=== PATIENT | male | born 1965 | race Caucasian/White ===

== ENCOUNTER 2018-01-25 17:10 | Emergency (ER) | payer MEDICARE, MEDICAID ==
[~2018-01-25] VITALS: Ht 182.9 cm; Wt 90.7 kg
[2018-01-25 18:08] VITALS: BP 118/74
[2018-01-25] MEDS ORDERED: DIPHENHYDRAMINE25 M1 ORAL (18:38)
[2018-01-25] MEDS ORDERED: GABAPENTIN100 MG ORAL (18:38)
[2018-01-25 19:26] VITALS: BP 118/74
[2018-01-25] MEDS ORDERED: ACETAMINOPHEN-1 EAC1 ORAL (19:45)
--- NOTE | 2018-01-26 00:25 | Emergency Room Report ---
History of Present Illness General Chief Complaint: Pain Source: Patient Present Illness Allergies: Coded Allergies: MILK (Unverified Allergy, Unknown, 01/25/18) Nursing Documentation-PMH Past Medical History: No Stated History Hx Diabetes: Yes Physical Exam Vital Signs Date Time Temp Pulse Resp B/P (MAP) Pulse Ox O2 Delivery O2 Flow Rate FiO2 01/25/18 17:07 98.1 134 18 118/74 95 Room Air 98.1 Medical Decision Making Diagnostic Impression: Primary Impression: Neuropathy Last Vital Signs Date Time Temp Pulse Resp B/P (MAP) Pulse Ox O2 Delivery O2 Flow Rate FiO2 01/25/18 19:26 98.1 70 18 118/74 95 Room Air 98.1 Disposition: HOME, SELF-CARE Condition: Stable Scripts Acetaminophen With Codeine (T#3) (TYLENOL #3 TAB*) Y Tab 1 TAB ORAL Q8H PRN for For Pain, #20 TAB Prov: Dominic Lou MD 01/25/18 Diphenhydramine Hcl* (DIPHENHYDRAMINE HCL*) 25 Mg Capsule 25 MG ORAL QHS PRN for insomnia, #30 CAP 0 Refills Prov: Dominic Lou MD 01/25/18 Gabapentin* (GABAPENTIN*) 100 Mg Capsule 100 MG ORAL THREE TIMES A DAY for 10 Days, CAP Prov: Dominic Lou MD 01/25/18 Referrals: NON PHYSICIAN (PCP) Patient Instructions: Neuropathic Pain Dominic Lou MD Jan 26, 2018 00:25
== END 2018-01-25 19:26 | disposition home or self-care (01) ==
LOC: EDBD 17:10 → EMR 18:00
DX: G62.9 Polyneuropathy, unspecified (principal); E11.9 Type 2 diabetes mellitus without complications
CPT/HCPCS: 82962; 99283

== ENCOUNTER 2020-03-28 12:28 | Inpatient (IN) | payer MEDICARE, MEDICAID ==
[~2020-03-28] VITALS: Ht 188 cm; Wt 127.0 kg
[~2020-03-28 12:28] MED LIST: ACETAMINOPHEN-1 EAC1 ORAL; DIPHENHYDRAMINE25 M1 ORAL; GABAPENTIN100 MG ORAL
[2020-03-28 12:43] VITALS: BP 128/74
[2020-03-28] MEDS ORDERED: Vancomycin 1 GM in NS 275 ML IVPB ONE (13:00)
[2020-03-28] MEDS ORDERED: Cefepime HCl 1 GM in D5W 55 ML IVPB ONE (13:00)
[2020-03-28] MEDS ORDERED: SODIUM CHLORIDE IVLG ONE (13:15)
--- NOTE | 2020-03-28 13:21 | Emergency Room Report ---
History of Present Illness General Chief Complaint: Abnormal Labs Source: Patient Present Illness HPI 55-year-old male with past medical history of dou-pewgqcp-nchxfkqzi diabetes, hypertension, obesity, polysubstance abuse presents by ambulance with a chief complaint of right plantar foot pain and generalized weakness. EMS found blood sugar to be critically elevated in the 400s. Patient also endorsed some p alpitation but denies any chest pain at this time. He states that he is currently living at a treatment center in [facility]. He denies recent methamphetamine use, fever, chills, cough, hemoptysis, nausea, vomiting, diarrhea, shortness of breath, rash or any other symptoms. Tdap is unknown. The patient's symptoms were gradual onset, severity was moderate, duration since several weeks. Quality: Aching/burning Past medical history: Diabetes, hypertension, obesity, polysubstance abuse Past surgical history: Denies Smoking: Tobacco Alcohol use: Denies Drug use: Denies Review of systems: CONST: No fevers positive chills, No night sweats PULMONARY: No productive cough, No shortness of breath CARDIAC: No chest pain, No palpitations GI: No vomiting, No diarrhea , No melena_or_BRBPR : No dysuria, No hematuria, No discharge NEURO: No new_focal_weakness_or_numbness, No confusion, No vision changes 14 point Review of Systems is otherwise negative except per HPI Physical Exam: GENERAL: Awake_alert_ nontoxic, no acute distress Spo2 100 % on RA -normal EYES: Extraocular muscles are intact. Conjunctivae clear. Lids without swelling ENT: External nose and ear normal_in_appearance. Oropharynx clear. Head_atraumatic, Moist_oral_mucosa NECK: No JVD. No meningismus. No thyromegaly. Supple. Trachea midline RESP: Normal respiratory effort. Symmetric rise. No stridor. Clear_to_auscultat ion_No_rales_No_wheezes CARDIAC: Tachycardic and regular rhytm. No_significant pedal edema. ABDOMEN: Soft. Nondistended. Nontender_No_rebound_or_guarding. MSK: Normal muscle tone, without rigidity. Extremities without asymmetric deformity or swelling. SKIN: Large quarter sized diabetic foot ulceration with active purulent drainage. Surrounding cellulitis. No palpable crepitus no edema. Negative Homans' sign. NEUROLOGIC: Alert, oriented x3. Motor_and_sensation_grossly_intact. No truncal ataxia. Gait_normal Psych: Normal mood and affect, normal judgment and insight - COORDINATION OF CARE Case was discussed with: Patient , Patient's Physician Any labs and imaging that were ordered were interpreted as part of the medical decision making: Medical Decision Making/Plan: Differential diagnosis includes musculoskeletal pain, fracture, dislocation, soft tissue infection such as cellulitis or abscess, necrotizing fasciitis, compartment syndrome, septic arthritis, arterial occlusion, deep venous thrombosis, among others. Patient is disheveled and dehydrated appearing. His right plantar foot has large open purulent diabetic foot ulceration with surrounding cellulitis. There is nothing to suggest necrotizing fasciitis at this time. Accu-Chek was critically elevated therefore patient was bolused with IV fluids. X-ray is negative for subcutaneous gas. High suspicion for osteomyelitis. Labs show elevated lactate of 3. Also ++ Hyperglycemia without evidence of DKA or HHS. No significant leukocytosis or bandemia. EKG is normal sinus rhythm ED intervention included cefepime, tdap, vanco, IVFs. Also received insulin for hyperglycemia. Distally the patient has capillary refill <2 seconds and strong pulses. There is no pallor or pain out of proportion to exam. There is no significant swelling or venous engorgement. The patient has no significant DVT risk factors or known hypercoagulable disorder. No evidence of arterial occlusion or deep venous thrombosis. The associated joints have full range of motion without any significant pain or restriction in mobility. There is no crepitus or pain out of proportion to exam and the patient is afebrile and nontoxic. I spoke with Dr. Benson, and reviewed the patients presentation, workup, res ults, and treatment. They will admit the patient for further care and evaluation, and assume care of the patient at this time. Allergies: Coded Allergies: MILK (Unverified Allergy, Unknown, 01/25/18) COVID-19 Screening Contact w/high risk pt: No Experienced COVID-19 symptoms?: No COVID-19 Testing performed BED RUBBER: No Nursing Documentation-PMH Hx Diabetes: Yes Physical Exam Vital Signs Date Time Temp Pulse Resp B/P (MAP) Pulse Ox O2 Delivery O2 Flow Rate FiO2 03/28/20 12:26 97.9 100 18 128/74 (92) 98 03/28/20 12:43 Room Air Sp02 EP Interpretation: reviewed, normal Medical Decision Making Diagnostic Impression: Primary Impression: Diabetic foot ulcer Additional Impressions: Uncontrolled diabetes mellitus Obesity Noncompliance Polysubstance abuse Hypertension Neuropathy EKG Diagnostic Results MARCY Sims 12-lead EKG (interpreted by ) Time: 1252 Indication: Rhythm analysis Tracing visualized and Interpreted by me. Rhythm: Normal sinus rhythm Rate: 94 bpm QTc: 420 Morphology: No_significant_ST_elevations_or_depressions, No STEMI Impression: Normal_sinus_rhythm_without_significant_abnormality Rhythm Strip Diag. Results Rhythm Strip Time: 13:20 EP Interpretation: yes Rate: 84 Rhythm: NSR, no PVC's, no ectopy Chest X-Ray Diagnostic Results Chest X-Ray Diagnostic Results : MARCY Sims Chest X-Ray: Views: [ 1 ] view(s) Indication: Chest pain Findings: Mediastinum normal. No infiltrate. Impression: Mild cardiomegaly. The X-ray(s) were independently viewed and interpreted contemporaneously Electronically signed by Estella herrera DO Right foot X-ray: Views: 3 view(s) No fracture. Osteomyelitis Indication: Pain Impression: Osteomyelitis second metatarsal. No soft tissue swelling or crepitus The X-ray(s) were independently viewed and interpreted contemporaneously - Electronically signed by Estella herrera DO Reevaluation Time: 13:21 Last Vital Signs Date Time Temp Pulse Resp B/P (MAP) Pulse Ox O2 Delivery O2 Flow Rate FiO2 03/28/20 12:43 97.8 103 18 128/74 98 Room Air Status: improved Disposition: ADMITTED INPATIENT Admit Decision Time: 13:21 Condition: Stable Estella Houser D.O. Mar 28, 2020 13:21
[2020-03-28 13:33] LABS: BASOPHILS % (AUTO) 1.1 % (0.0-2.0); EOSINOPHILS % (AUTO) 2.2 % (0.0-3.0); HEMATOCRIT 38.7 % (42.0-52.0); HEMOGLOBIN 13.3 G/DL (14.2-18.0); MEAN CORPUSCULAR VOLUME 81 FL (80-99); MONOCYTES % (AUTO) 6.8 % (1.0-10.0); PLATELET COUNT 189 K/UL (150-450); RED BLOOD COUNT 4.78 M/UL (4.70-6.10); RED CELL DISTRIBUTION WIDTH 13.2 % (11.6-14.8); WHITE BLOOD COUNT 12.2 K/UL (4.8-10.8)
[2020-03-28 13:42] LABS: ANION GAP 5 mmol/L (5-15); BLOOD UREA NITROGEN 16 mg/dL (7-18); CALCIUM 8.7 MG/DL (8.5-10.1); CARBON DIOXIDE 26 MMOL/L (21-32); CHLORIDE 100 MMOL/L (98-107); CREATININE 0.9 MG/DL (0.55-1.30); INR 0.9 (0.9-1.1); POTASSIUM 4.5 MMOL/L (3.5-5.1); SODIUM 131 MMOL/L (136-145)
--- NOTE | 2020-03-28 13:42 | Diagnostic Imaging Report ---
Indication: Chest pain Technique: One view of the chest Comparison: none Findings: Lungs and pleural spaces are clear. Heart size is normal. Impression: No acute process
[2020-03-28 13:46] LABS: ALANINE AMINOTRANSFERASE 25 U/L (12-78); ALBUMIN 3.1 G/DL (3.4-5.0); ALBUMIN/GLOBULIN RATIO 0.8 (1.0-2.7); ALKALINE PHOSPHATASE 148 U/L (46-116); ASPARTATE AMINO TRANSFERASE 20 U/L (15-37); BILIRUBIN,TOTAL 0.3 MG/DL (0.2-1.0); CREATINE KINASE 108 U/L (26-308)
[2020-03-28] MEDS ORDERED: METFORMIN HCL500 M1 ORAL (13:46)
[2020-03-28] MEDS ORDERED: Tetanus/Diptheria/Pertussis IM ONE (14:00)
[2020-03-28] MEDS ORDERED: Insulin Human Regular 100units/ml 3ml IV ONE (14:00)
[2020-03-28 14:40] VITALS: BP 132/79
--- NOTE | 2020-03-28 14:43 | Diagnostic Imaging Report ---
Indication: Wound on dorsal portion of fluid Technique: 3 views right foot Comparison: none Findings: Exam is significantly limited by deformities. There is severe hammertoe deformity of the first digit, with nearly 90 degree angulation of the metatarsophalangeal joint. The base of the proximal phalanx appears significantly posteriorly subluxed and may be chronically dislocated. There is unusual gracile and deformed appearance of the second metatarsal, probably due to old trauma and erosive change. There is some chronic appearing erosive change of the second metatarsal head as well. There is severe hammertoe deformity of the second digit. There is less severe hammertoe deformities of the third fourth and fifth digits. No definite acute fracture. No dislocations. No definite osseous erosions. There is some chronic appearing periosteal reaction along the shaft of the fourth metatarsal, but no worrisome acute periosteal reaction demonstrated. Impression: No definite plain radiographic abnormality to suggest acute osteomyelitis. Note, however, limited sensitivity of plain radiographs for such; consider MRI or bone scan if there is high clinical suspicion Deformities as described No acute bony trauma
[2020-03-28 16:30] VITALS: BP 122/71
[2020-03-28 18:32] VITALS: BP 136/86
[2020-03-28 19:42] LABS: APPEARANCE,URINE CLEAR; BILIRUBIN, URINE NEGATIVE (NEGATIVE); COLOR,URINE PALE YELLOW; GLUCOSE, URINE (UA) 4+ (NEGATIVE); KETONES,URINE NEGATIVE (NEGATIVE); LEUKOCYTE ESTERASE ,URINE NEGATIVE (NEGATIVE); NITRITE,URINE NEGATIVE (NEGATIVE); PH,URINE 7 (4.5-8.0); PROTEIN,URINE 1+ (NEGATIVE); UROBILINOGEN,URINE NORMAL MG/DL (0.0-1.0)
--- NOTE | 2020-03-28 20:32 | History and Physical Report ---
DATE OF ADMISSION: 03/28/2020 HISTORY OF PRESENT ILLNESS: This is a 55-year-old male who came with DKA and diabetes, poorly controlled, nonhealing ulcer. He has no fever or chills. He came with 911, where he was found to have foot ulcer and complaining of pain. The patient was given IV antibiotics, vancomycin, cefepime. PAST MEDICAL HISTORY: Significant for hypertension, diabetes, gangrene, and diabetic foot ulcer. MEDICATIONS: Insulin. ALLERGIES: NKA. FAMILY HISTORY: Noncontributory. SOCIAL HISTORY: Lives at home by himself. REVIEW OF SYSTEMS: Generalized weakness, tired. Foot pain. PHYSICAL EXAMINATION: VITAL SIGNS: Blood pressure 130/70, pulse 84, respirations 18, no fever. HEENT: NAD. CHEST: Bilateral decreased breath sounds. CARDIOVASCULAR: Regular rhythm. No gallop. No murmur. ABDOMEN: Soft. Positive bowel sounds. EXTREMITIES: Foot ulcer. GENITOURINARY: Deferred. LABORATORY AND DIAGNOSTIC DATA: White counts are normal. ASSESSMENT AND PLAN: 1. Gangrene. 2. Foot ulcer. 3. Diabetic neuropathy. 4. Diabetes, poorly controlled. PLAN: We will admit on medical floor. Start IV antibiotics. Sliding scale, Accu-Chek, IV fluid. Consider surgery consult. Rock Benson M.D. DR: MARYCRUZ JOB#: [id number] CC:
[2020-03-28 20:45] VITALS: BP 143/93
[2020-03-28] MEDS ORDERED: HYDROcodone/Acetamin 5/325 tab ORAL PRN (21:45)
[2020-03-28] MEDS: Piperacillin/Tazobactam 3.375 GM in NS 110 ML IVPB SCH (22:47)
[2020-03-28] MEDS: Heparin 5000 units/ml inj SUBQ SCH (22:51)
[2020-03-29] VITALS: BP 143/81
[2020-03-29] MEDS: Vancomycin 1.25gm/250ml Premix IVPB SCH ×3 (02:23→21:05)
[2020-03-29 04:00] VITALS: BP 116/53
[2020-03-29] MEDS: Heparin 5000 units/ml inj SUBQ SCH ×3 (05:37→22:02)
[2020-03-29] MEDS: Piperacillin/Tazobactam 3.375 GM in NS 110 ML IVPB SCH ×3 (05:39→22:01)
[2020-03-29] MEDS: NovoLOG Insulin Flexpen SUBQ SCH ×4 (05:39→21:12)
[2020-03-29 08:00] VITALS: BP 113/77
--- NOTE | 2020-03-29 09:53 | General Progress Note ---
Subjective Constitutional: Reports: fever, malaise HEENT: Reports: no symptoms Cardiovascular: Reports: no symptoms Respiratory: Reports: no symptoms Gastrointestinal/Abdominal: Reports: no symptoms Genitourinary: Reports: no symptoms Neurologic/Psychiatric: Reports: no symptoms Endocrine: Reports: excessive sweating Allergies: Coded Allergies: MILK (Unverified Allergy, Unknown, 01/25/18) Subjective in bed doing ok Objective Last 24 Hour Vital Signs Date Time Temp Pulse Resp B/P (MAP) Pulse Ox O2 Delivery O2 Flow Rate FiO2 03/29/20 08:00 97.9 98 21 113/77 (89) 97 03/29/20 04:00 98.7 88 20 116/53 (74) 95 03/29/20 00:00 99.0 84 20 143/81 (101) 95 03/28/20 21:00 Room Air 03/28/20 20:45 98.4 67 20 143/93 (110) 95 03/28/20 20:45 Room Air 03/28/20 20:35 98.2 89 18 126/67 98 Room Air 03/28/20 18:32 97.8 94 17 136/86 96 Room Air 03/28/20 16:30 97.8 94 17 122/71 98 Room Air 03/28/20 14:40 97.8 100 18 132/79 96 Room Air 03/28/20 12:43 97.8 103 18 128/74 98 Room Air 03/28/20 12:26 97.9 100 18 128/74 (92) 98 l Intake and Output 03/28/20 03/29/20 19:00 07:00 Intake Total 4330 ml 800 ml Output Total 0 ml 750 ml Balance 4330 ml 50 ml Intake Oral 800 ml IV Total 4330 ml Output Urine Total 0 ml 750 ml # Voids 2 Laboratory Tests 03/28/20 12:40: White Blood Count 12.2H, Red Blood Count 4.78, Hemoglobin 13.3L, Hematocrit 38.7L, Mean Corpuscular Volume 81, Mean Corpuscular Hemoglobin 27.9, Mean Corpuscular Hemoglobin Concent 34.4, Red Cell Distribution Width 13.2, Platelet Count 189, Mean Platelet Volume 9.3, Neutrophils (%) (Auto) 73.0, Lymphocytes (%) (Auto) 17.0L, Monocytes (%) (Auto) 6.8, Eosinophils (%) (Auto) 2.2, Basophils (%) (Auto) 1.1, Erythrocyte Sedimentation Rate 45H, Prothrombin Time 9.7, Prothromb Time International Ratio 0.9, Activated Partial Thromboplast Time 19L, Sodium Level 131L, Potassium Level 4.5, Chloride Level 100, Carbon Dioxide Level 26, Anion Gap 5, Blood Urea Nitrogen 16, Creatinine 0.9, Estimat Glomerular Filtration Rate > 60, Glucose Level 452H, Lactic Acid Level 3.00H, Calcium Level 8.7, Total Bilirubin 0.3, Aspartate Amino Transf (AST/SGOT) 20, Alanine Aminotransferase (ALT/SGPT) 25, Alkaline Phosphatase 148H, Total Creatine Kinase 108, Troponin I 0.000, C-Reactive Protein, Quantitative 2.5H, Total Protein 7.0, Albumin 3.1L, Globulin 3.9, Albumin/Globulin Ratio 0.8L, Lipase 148, Beta-Hydroxybutyric Acid [Pending] 03/28/20 12:42: Venous Blood pH 7.433, Venous Blood Partial Pressure CO2 41.2, Venous Blood Partial Pressure O2 60.1, Venous Blood HCO3 26.9, Venous Blood Base Excess 2.4, Venous Blood Carboxyhemoglobin 1.9H, Methemoglobin 0.6 03/28/20 15:30: Lactic Acid Level 1.30 03/28/20 19:15: Urine Color Pale yellow, Urine Appearance Clear, Urine pH 7, Urine Specific [place] 1.010, Urine Protein 1+H, Urine Glucose (UA) 4+H, Urine Ketones Negative, Urine Blood Negative, Urine Nitrite Negative, Urine Bilirubin Negative, Urine Urobilinogen Normal, Urine Leukocyte Esterase Negative, Urine RBC 0, Urine WBC 0-2, Urine Squamous Epithelial Cells Few, Urine Amorphous Sediment ModerateH, Urine Bacteria Few, Urine Opiates Screen Negative, Urine Barbiturates Screen Negative, Phencyclidine (PCP) Screen Negative, Urine Amphetamines Screen Negative, Urine Benzodiazepines Screen Negative, Urine Cocaine Screen Negative, Urine Marijuana (THC) Screen Negative 03/28/20 23:00: POC Whole Blood Glucose 291H 03/29/20 04:00: Acetone, Qualitative [Pending] 03/29/20 05:30: Hemoglobin A1c 9.6H 03/29/20 05:35: POC Whole Blood Glucose 298H Height (Feet): 6 Height (Inches): 2.00 Weight (Pounds): 280 General Appearance: no apparent distress EENT: PERRL/EOMI Neck: supple Cardiovascular: regular rhythm Respiratory/Chest: normal breath sounds Abdomen: soft Extremities: other - foot ulcer Clement Benson MD Mar 29, 2020 09:52
--- NOTE | 2020-03-29 09:54 | General Progress Note ---
Subjective Allergies: Coded Allergies: MILK (Unverified Allergy, Unknown, 01/25/18) Subjective in bed doing ok Objective Last 24 Hour Vital Signs Date Time Temp Pulse Resp B/P (MAP) Pulse Ox O2 Delivery O2 Flow Rate FiO2 03/29/20 08:00 97.9 98 21 113/77 (89) 97 03/29/20 04:00 98.7 88 20 116/53 (74) 95 03/29/20 00:00 99.0 84 20 143/81 (101) 95 03/28/20 21:00 Room Air 03/28/20 20:45 98.4 67 20 143/93 (110) 95 03/28/20 20:45 Room Air 03/28/20 20:35 98.2 89 18 126/67 98 Room Air 03/28/20 18:32 97.8 94 17 136/86 96 Room Air 03/28/20 16:30 97.8 94 17 122/71 98 Room Air 03/28/20 14:40 97.8 100 18 132/79 96 Room Air 03/28/20 12:43 97.8 103 18 128/74 98 Room Air 03/28/20 12:26 97.9 100 18 128/74 (92) 98 Intake and Output 03/28/20 03/29/20 19:00 07:00 Intake Total 4330 ml 800 ml Output Total 0 ml 750 ml Balance 4330 ml 50 ml Intake Oral 800 ml IV Total 4330 ml Output Urine Total 0 ml 750 ml # Voids 2 Laboratory Tests 03/28/20 12:40: White Blood Count 12.2H, Red Blood Count 4.78, Hemoglobin 13.3L, Hematocrit 38.7L, Mean Corpuscular Volume 81, Mean Corpuscular Hemoglobin 27.9, Mean Corpuscular Hemoglobin Concent 34.4, Red Cell Distribution Width 13.2, Platelet Count 189, Mean Platelet Volume 9.3, Neutrophils (%) (Auto) 73.0, Lymphocytes (%) (Auto) 17.0L, Monocytes (%) (Auto) 6.8, Eosinophils (%) (Auto) 2.2, Basophils (%) (Auto) 1.1, Erythrocyte Sedimentation Rate 45H, Prothrombin Time 9.7, Prothromb Time International Ratio 0.9, Activated Partial Thromboplast Time 19L, Sodium Level 131L, Potassium Level 4.5, Chloride Level 100, Carbon Dioxide Level 26, Anion Gap 5, Blood Urea Nitrogen 16, Creatinine 0.9, Estimat Glomerular Filtration Rate > 60, Glucose Level 452H, Lactic Acid Level 3.00H, Calcium Level 8.7, Total Bilirubin 0.3, Aspartate Amino Transf (AST/SGOT) 20, Alanine Aminotransferase (ALT/SGPT) 25, Alkaline Phosphatase 148H, Total Creatine Kinase 108, Troponin I 0.000, C-Reactive Protein, Quantitative 2.5H, Total Protein 7.0, Albumin 3.1L, Globulin 3.9, Albumin/Globulin Ratio 0.8L, Lipase 148, Beta-Hydroxybutyric Acid [Pending] 03/28/20 12:42: Venous Blood pH 7.433, Venous Blood Partial Pressure CO2 41.2, Venous Blood Partial Pressure O2 60.1, Venous Blood HCO3 26.9, Venous Blood Base Excess 2.4, Venous Blood Carboxyhemoglobin 1.9H, Methemoglobin 0.6 03/28/20 15:30: Lactic Acid Level 1.30 03/28/20 19:15: Urine Color Pale yellow, Urine Appearance Clear, Urine pH 7, Urine Specific [place] 1.010, Urine Protein 1+H, Urine Glucose (UA) 4+H, Urine Ketones Negative, Urine Blood Negative, Urine Nitrite Negative, Urine Bilirubin Negative, Urine Urobilinogen Normal, Urine Leukocyte Esterase Negative, Urine RBC 0, Urine WBC 0-2, Urine Squamous Epithelial Cells Few, Urine Amorphous Sediment ModerateH, Urine Bacteria Few, Urine Opiates Screen Negative, Urine Barbiturates Screen Negative, Phencyclidine (PCP) Screen Negative, Urine Amphetamines Screen Negative, Urine Benzodiazepines Screen Negative, Urine Cocaine Screen Negative, Urine Marijuana (THC) Screen Negative 03/28/20 23:00: POC Whole Blood Glucose 291H 03/29/20 04:00: Acetone, Qualitative [Pending] 03/29/20 05:30: Hemoglobin A1c 9.6H 03/29/20 05:35: POC Whole Blood Glucose 298H Height (Feet): 6 Height (Inches): 2.00 Weight (Pounds): 280 Assessment/Plan Assessment/Plan: non healing foot ulcer dm uncontrolled dm neuropathy depression iv abx wound care pdietary consult Clement Benson MD Mar 29, 2020 09:54
[2020-03-29 12:00] VITALS: BP 116/73
--- NOTE | 2020-03-29 12:49 | Consultation ---
History of Present Illness General Date patient seen: Mar 29, 2020 Time patient seen: 12:40 Chief Complaint: Chronic ulcer right foot Referring physician: Dr Benson Reason for Consultation: Diabetic foot ulcer Present Illness HPI Patient has increasing pain in right foot. He has had an ulcer on the right foot for the past 3 years. He sought urgent care for his condition. He states he has no where to live. Allergies: Coded Allergies: MILK (Unverified Allergy, Unknown, 01/25/18) Medication History Scheduled Gabapentin* (Gabapentin*), 100 MG ORAL THREE TIMES A DAY Scheduled PRN Acetaminophen With Codeine (T#3) (Tylenol #3 Tab*), 1 TAB ORAL Q8H PRN for For Pain Diphenhydramine Hcl* (Diphenhydramine Hcl*), 25 MG ORAL QHS PRN for insomnia Miscellaneous Medications Metformin Hcl* (Metformin Hcl*), Unknown Dose ORAL, (Reported) Patient History History Provided By: Patient Healthcare decision maker Resuscitation status Advanced Directive on File Past Medical/Surgical History Past Medical/Surgical History: (1) Neuropathy (2) Hypertension (3) Obesity (4) Diabetic foot ulcer (5) Uncontrolled diabetes mellitus (6) Polysubstance abuse (7) Noncompliance (8) Diabetic foot infection Review of Systems Constitutional: Denies: chills, sweats, fever, malaise, weakness Respiratory: Denies: cough, shortness of breath Musculoskeletal: Reports: no symptoms; Denies: gout, joint pain, joint swelling Skin: Reports: change in color, other - ulcer right foot Neurological: Reports: headache; Denies: numbness, paresthesia Physical Exam General Appearance: WD/WN, no apparent distress Cardiovascular/Chest: normal peripheral pulses Extremities: normal range of motion Skin Exam: other - full thickness wound plantar forefoot, does not probe to bone. Minimal serous discharge, no malodor Neurologic: no motor/sensory deficits Last 24 Hour Vital Signs Date Time Temp Pulse Resp B/P (MAP) Pulse Ox O2 Delivery O2 Flow Rate FiO2 03/29/20 08:00 97.9 98 21 113/77 (89) 97 03/29/20 04:00 98.7 88 20 116/53 (74) 95 03/29/20 00:00 99.0 84 20 143/81 (101) 95 03/28/20 21:00 Room Air 03/28/20 20:45 98.4 67 20 143/93 (110) 95 03/28/20 20:45 Room Air 03/28/20 20:35 98.2 89 18 126/67 98 Room Air 03/28/20 18:32 97.8 94 17 136/86 96 Room Air 03/28/20 16:30 97.8 94 17 122/71 98 Room Air 03/28/20 14:40 97.8 100 18 132/79 96 Room Air 03/28/20 12:43 97.8 103 18 128/74 98 Room Air Intake and Output 03/28/20 03/29/20 19:00 07:00 Intake Total 4330 ml 800 ml Output Total 0 ml 750 ml Balance 4330 ml 50 ml Intake Oral 800 ml IV Total 4330 ml Output Urine Total 0 ml 750 ml # Voids 2 Laboratory Tests Test 03/28/20 15:30 03/28/20 19:15 03/28/20 23:00 03/29/20 04:00 Lactic Acid Level 1.30 mmol/L (0.66-2.22) Urine Color Pale yellow Urine Appearance Clear Urine pH 7 (4.5-8.0) Urine Specific [place] 1.010 (1.005-1.035) Urine Protein 1+ (NEGATIVE) H Urine Glucose (UA) 4+ (NEGATIVE) H Urine Ketones Negative (NEGATIVE) Urine Blood Negative (NEGATIVE) Urine Nitrite Negative (NEGATIVE) Urine Bilirubin Negative (NEGATIVE) Urine Urobilinogen Normal MG/DL (0.0-1.0) Urine Leukocyte Esterase Negative (NEGATIVE) Urine RBC 0 /HPF (0 - 0) Urine WBC 0-2 /HPF (0 - 0) Urine Squamous Epithelial Cells Few /LPF (NONE/OCC) Urine Amorphous Sediment Moderate /LPF (NONE) H Urine Bacteria Few /HPF (NONE) Urine Opiates Screen Negative (NEGATIVE) Urine Barbiturates Screen Negative (NEGATIVE) Phencyclidine (PCP) Screen Negative (NEGATIVE) Urine Amphetamines Screen Negative (NEGATIVE) Urine Benzodiazepines Screen Negative (NEGATIVE) Urine Cocaine Screen Negative (NEGATIVE) Urine Marijuana (THC) Screen Negative (NEGATIVE) POC Whole Blood Glucose 291 MG/DL (74-106) H Acetone, Qualitative Pending Test 03/29/20 05:30 03/29/20 05:35 03/29/20 11:38 Hemoglobin A1c 9.6 % (4.3-6.0) H POC Whole Blood Glucose 298 MG/DL (74-106) H 302 MG/DL (74-106) H Microbiology Date/Time Source Procedure Growth Status 03/28/20 16:25 Nasopharynx SARS-CoV-2 RdRp Gene Assay - Final Complete Height (Feet): 6 Height (Inches): 2.00 Weight (Pounds): 280 Medications Current Medications Medications (Trade) Dose Ordered Sig/Yamini Route PRN Reason Start Time Stop Time Status Last Admin Dose Admin Acetaminophen (Tylenol) 650 mg Q4H PRN ORAL Mild Pain (Pain Scale 1-3) 03/28/20 21:45 04/27/20 21:44 Acetaminophen/ Hydrocodone Bitart ([place] 5/325) 1 tab Q6H PRN ORAL Moderate Pain (Pain Scale 4-6) 03/28/20 21:45 04/04/20 21:44 03/28/20 22:50 Dextrose (Dextrose 50%) 25 ml Q30M PRN IV Hypoglycemia 03/28/20 21:45 06/26/20 21:44 Dextrose (Dextrose 50%) 50 ml Q30M PRN IV Hypoglycemia 03/28/20 21:45 06/26/20 21:44 Gabapentin (Neurontin) 600 mg BID ORAL 03/28/20 21:45 04/27/20 21:44 03/29/20 10:34 Heparin Sodium (Porcine) (Heparin 5000 units/ml) 5,000 units EVERY 8 HOURS SUBQ 03/28/20 22:00 05/12/20 21:59 03/29/20 05:37 Insulin Aspart (NovoLOG) BEFORE MEALS AND HS SUBQ 03/29/20 06:30 06/27/20 06:29 03/29/20 11:41 Ondansetron HCl (Zofran) 4 mg Q6H PRN IVP Nausea & Vomiting 03/28/20 21:45 04/27/20 21:44 Piperacillin Sod/ Tazobactam Sod 3.375 gm/Sodium Chloride 110 ml @ 27.5 mls/hr EVERY 8 HOURS IVPB 03/28/20 22:00 04/02/20 21:59 03/29/20 05:39 Sodium Chloride 1,000 ml @ 100 mls/hr Q10H IV 03/28/20 21:45 04/27/20 21:44 03/28/20 22:49 Vancomycin HCl 250 ml @ 166.667 mls/hr Q8H IVPB 03/29/20 02:00 04/03/20 01:59 03/29/20 11:57 Vancomycin HCl (Vanco pharmacy to dose) 1 ea DAILY PRN MISC Per rx protocol 03/28/20 21:45 04/27/20 21:44 Assessment/Plan Assessment/Plan: A/ 1) Right foot diabetic foot ulcer 2) Uncontrolled DM 3) DM neuropathy 4) Homeless P/ 1) Cont abx per ID 2) Wound care ordered 3) MRI ordered 4) D/W patient. Will follow Thank you Nima Jensen DPM Mar 29, 2020 12:49
[2020-03-29 16:00] VITALS: BP 114/70
--- NOTE | 2020-03-29 16:44 | Diagnostic Imaging Report ---
Indication: Right foot ulcer for 3 years Technique: Sagittal, axial, and coronal T1 FSE and FSE STIR images of the right forefoot Comparison: No comparison MRI. Reference made to foot radiograph dated 03/28/2020 Findings: Abnormal increased STIR and decreased T1 signal is seen in the mid to distal first metatarsal. There is mild edema of the surrounding soft tissues. The first metatarsal phalangeal joint is dislocated, with the first proximal phalanx and a 90 degree angle to the first metatarsal neck leaning cephalad, and the articular surface of the proximal phalanx resting on the first metatarsal neck. There is also signal abnormality within the medial sesamoid, likely indicating involvement with osteomyelitis. There is more questionable signal abnormality in the plantar sesamoid. The remainder of the first digit demonstrates normal marrow signal. Markedly increased STIR and decreased T1 signal are seen throughout the mid to distal second metatarsal. There is a suggestion of a chronic fracture deformity of the second metatarsal tarsal shaft. There is evidence of advanced destructive changes of the distal aspect of the second metatarsal, which is more striking what is demonstrated on the prior plain radiograph. Abnormal increased STIR and decreased T1 signal is also seen within the second proximal phalanx. There is considerable edema of the surrounding soft tissues. Abnormal increased STIR and decreased T1 signal is seen throughout the third metatarsal shaft and head. There is also mildly increased STIR signal and equivocal decreased T1 signal in the third proximal phalanx. The middle and distal phalanges appear unremarkable. There is considerable edema of the surrounding soft tissues. No definite signal abnormality involving the fourth or fifth digits is demonstrated. There is a well-circumscribed fluid collection involving the tip of the fourth digit which appears very superficial. This measures 10 x 6 mm. A tissue marker ahmadi an ulcer at the plantar surface below the third proximal interphalangeal joint. Abnormal increased STIR and decreased T1 signal are seen in the lateral cuneiform. More questionable smaller signal abnormality is seen within the middle cuneiform and a very small area of signal abnormality is seen at the posterior superior corner of the medial cuneiform. There is equivocal increased STIR signal without definite T1 signal abnormality in the cuboid Other than the abnormality of the tip of the fourth digit, no discrete organized fluid collection to suggest abscess is demonstrated. Impression: Evidence of osteomyelitis involving the second metatarsal and second proximal phalanx. Evidence of extensive destructive change of the distal second metatarsal; appearance on MRI and earlier plain radiograph suggests that this is a combination of chronic and acute destructive change. Evidence of osteomyelitis involving the first metatarsal, the third metatarsal, and the lateral cuneiform. STIR signal abnormality without definite corresponding T1 signal abnormality involving the third proximal phalanx, the cuboid, and the middle and medial cuneiforms. This could represent reactive changes, or could indicate very early osteomyelitis. Superficial fluid collection at the tip of the fourth digit is a 10 x 6 mm, presumably a blister. This should be evident clinically graft no definite organized fluid collection to suggest abscess. Areas of soft tissue edema probably represent inflammation secondary to infection, but could also represent edema of hemodynamic origin. Soft tissue ulcer at the plantar surface below the third metatarsophalangeal joint Findings discussed by phone with Dr. Phoenix at the time of interpretation
--- NOTE | 2020-03-29 18:15 | Consultation ---
DATE OF CONSULTATION: 03/29/2020 INFECTIOUS DISEASE CONSULTATION This consult is for coverage of Dr. Naranjo. CONSULTING PHYSICIAN: Charbel Collier MD. PRIMARY ATTENDING PHYSICIAN: Clement Benson MD. REASON FOR CONSULTATION: Right foot osteomyelitis. HISTORY OF PRESENT ILLNESS: This is a 55-year-old white male admitted yesterday complaining of generalized weakness and right plantar pain. He has diabetes mellitus, on oral hypoglycemic agent. He was found to have hyperglycemia with blood sugar up to 452 at the time of admission. PAST MEDICAL HISTORY: Diabetes mellitus, hypertension, obesity, diabetic neuropathy. ALLERGIES: Milk. MEDICATIONS: Getting vancomycin, Zosyn, heparin, Zofran, gabapentin, and [place]. SOCIAL HISTORY: , homeless, active smoker. Denies drug and alcohol abuse. REVIEW OF SYSTEMS: No fever. No chills. Right foot pain. States that he has the ulcer in the right foot for more than a year that it comes and goes. PHYSICAL EXAMINATION: VITAL SIGNS: Temperature 98, pulse 77, blood pressure 114/70. GENERAL APPEARANCE: Seems to be obese. HEAD AND NECK: [place] conjunctivae. HEART: Normal rate. LUNGS: Clear. ABDOMEN: Soft, nontender. EXTREMITIES: He has no edema, has right foot plantal ulcer. LABORATORY AND DIAGNOSTIC DATA: COVID-19 test was negative. Blood cultures x2 are negative. WBC 3.2, hemoglobin 13.3, hematocrit 38.7, platelets 189,000. ESR is 45. Sodium 131, potassium 4.5, chloride 100, bicarb 26, BUN 16, creatinine 0.9. Glucose is 452 . Lactic acid was high at the time of admission at 3.0. The patient had an MRI of the right foot that showed osteomyelitis involving the fifth metatarsal and second proximal phalanx, osteomyelitis involving the first metatarsal, third metatarsal and lateral cuneiform. Superficial fluid collection at the tip of forefoot is 10 x 6 mmlikely blister. IMPRESSION: Osteomyelitis of right foot, diabetic foot ulcer, diabetes mellitus with hyperglycemia, hypertension, obesity, nicotine dependence, peripheral neuropathy. RECOMMENDATION: Continue with vancomycin and Zosyn. Follow up the wound culture. The patient needs long-term antibiotic. At the end of my exam, I thank Dr. Benson for involving me in the care of this patient. Charbel Collier M.D. DR: NIYAH JOB#: [id number] CC: SULEMA
[2020-03-29 20:00] VITALS: BP 111/76
[2020-03-30] VITALS: BP 107/65
[2020-03-30 04:00] VITALS: BP 126/77
[2020-03-30] MEDS: Vancomycin 1.25gm/250ml Premix IVPB SCH ×2 (04:05→13:10)
[2020-03-30] MEDS: Piperacillin/Tazobactam 3.375 GM in NS 110 ML IVPB SCH ×2 (06:36→14:00)
[2020-03-30] MEDS: Heparin 5000 units/ml inj SUBQ SCH ×3 (06:38→21:40)
[2020-03-30] MEDS: NovoLOG Insulin Flexpen SUBQ SCH ×4 (06:40→21:41)
[2020-03-30 08:00] VITALS: BP 121/74
[2020-03-30] MEDS ORDERED: NS 275ml ONE (08:17)
[2020-03-30] MEDS ORDERED: 1/2 NS 1000ml IV ONE (08:17)
[2020-03-30 12:00] VITALS: BP 107/61
--- NOTE | 2020-03-30 13:42 | General Progress Note ---
Subjective Allergies: Coded Allergies: MILK (Unverified Allergy, Unknown, 01/25/18) Subjective in bed c/o joseline in foot insomania Objective Last 24 Hour Vital Signs Date Time Temp Pulse Resp B/P (MAP) Pulse Ox O2 Delivery O2 Flow Rate FiO2 03/30/20 12:00 97.7 83 16 107/61 (76) 97 03/30/20 09:00 Room Air 03/30/20 08:00 98.3 89 16 121/74 (90) 97 03/30/20 04:00 97.2 76 22 126/77 (93) 97 03/30/20 00:00 97.6 77 22 107/65 (79) 98 03/29/20 21:00 Room Air 03/29/20 20:00 98.1 83 22 111/76 (88) 96 03/29/20 16:00 97.0 77 22 114/70 (85) 97 Intake and Output 03/29/20 03/30/20 19:00 07:00 Intake Total 1200 ml 950 ml Output Total 3000 ml 1800 ml Balance -1800 ml -850 ml Intake Oral 1200 ml 950 ml Output Urine Total 3000 ml 1800 ml # Voids 10 Laboratory Tests 03/29/20 16:32: POC Whole Blood Glucose 345H 03/29/20 21:04: POC Whole Blood Glucose 291H 03/30/20 06:38: POC Whole Blood Glucose 246H 03/30/20 11:10: Vancomycin Level Trough 11.4 03/30/20 11:41: POC Whole Blood Glucose 307H Height (Feet): 6 Height (Inches): 2.00 Weight (Pounds): 280 General Appearance: alert EENT: PERRL/EOMI Neck: supple Cardiovascular: regular rhythm Respiratory/Chest: lungs clear Abdomen: non tender, soft Extremities: other - rt foot ulcer and gas in wound Neurologic: hide salter II-XII grossly normal Skin: warm/dry Assessment/Plan Assessment/Plan: non healing foot ulcer dm uncontrolled dm neuropathy depression iv abx wound care pdietary consult Clement Benson MD Mar 30, 2020 13:42
--- NOTE | 2020-03-30 13:44 | History and Physical ---
History of Present Illness General Reason for Hospitalization: Abnormal Labs Present Illness Allergies: Coded Allergies: MILK (Unverified Allergy, Unknown, 01/25/18) COVID-19 Screening Contact w/high risk pt: No Experienced COVID-19 symptoms?: No Medication History Scheduled Gabapentin* (Gabapentin*), 100 MG ORAL THREE TIMES A DAY Scheduled PRN Acetaminophen With Codeine (T#3) (Tylenol #3 Tab*), 1 TAB ORAL Q8H PRN for For Pain Diphenhydramine Hcl* (Diphenhydramine Hcl*), 25 MG ORAL QHS PRN for insomnia Miscellaneous Medications Metformin Hcl* (Metformin Hcl*), Unknown Dose ORAL, (Reported) Patient History Healthcare decision maker Resuscitation status Advanced Directive on File Physical Exam Last 24 Hour Vital Signs Date Time Temp Pulse Resp B/P (MAP) Pulse Ox O2 Delivery O2 Flow Rate FiO2 03/30/20 12:00 97.7 83 16 107/61 (76) 97 03/30/20 09:00 Room Air 03/30/20 08:00 98.3 89 16 121/74 (90) 97 03/30/20 04:00 97.2 76 22 126/77 (93) 97 03/30/20 00:00 97.6 77 22 107/65 (79) 98 03/29/20 21:00 Room Air 03/29/20 20:00 98.1 83 22 111/76 (88) 96 03/29/20 16:00 97.0 77 22 114/70 (85) 97 Intake and Output 03/29/20 03/30/20 19:00 07:00 Intake Total 1200 ml 950 ml Output Total 3000 ml 1800 ml Balance -1800 ml -850 ml Intake Oral 1200 ml 950 ml Output Urine Total 3000 ml 1800 ml # Voids 10 Laboratory Tests Test 03/29/20 16:32 03/29/20 21:04 03/30/20 06:38 03/30/20 11:10 POC Whole Blood Glucose 345 MG/DL (74-106) H 291 MG/DL (74-106) H 246 MG/DL (74-106) H Vancomycin Level Trough 11.4 ug/mL (5.0-12.0) Test 03/30/20 11:41 POC Whole Blood Glucose 307 MG/DL (74-106) H Height (Feet): 6 Height (Inches): 2.00 Weight (Pounds): 280 Medications Current Medications Medications (Trade) Dose Ordered Sig/Yamini Route PRN Reason Start Time Stop Time Status Last Admin Dose Admin Acetaminophen (Tylenol) 650 mg Q4H PRN ORAL Mild Pain (Pain Scale 1-3) 03/28/20 21:45 04/27/20 21:44 Acetaminophen/ Hydrocodone Bitart ([place] 5/325) 1 tab Q6H PRN ORAL Moderate Pain (Pain Scale 4-6) 03/28/20 21:45 04/04/20 21:44 03/28/20 22:50 Dextrose (Dextrose 50%) 25 ml Q30M PRN IV Hypoglycemia 03/28/20 21:45 06/26/20 21:44 Dextrose (Dextrose 50%) 50 ml Q30M PRN IV Hypoglycemia 03/28/20 21:45 06/26/20 21:44 Gabapentin (Neurontin) 600 mg BID ORAL 03/28/20 21:45 04/27/20 21:44 03/30/20 08:40 Heparin Sodium (Porcine) (Heparin 5000 units/ml) 5,000 units EVERY 8 HOURS SUBQ 03/28/20 22:00 05/12/20 21:59 03/30/20 06:38 Insulin Aspart (NovoLOG) BEFORE MEALS AND HS SUBQ 03/29/20 06:30 06/27/20 06:29 03/30/20 12:25 Ondansetron HCl (Zofran) 4 mg Q6H PRN IVP Nausea & Vomiting 03/28/20 21:45 04/27/20 21:44 Piperacillin Sod/ Tazobactam Sod 3.375 gm/Sodium Chloride 110 ml @ 27.5 mls/hr EVERY 8 HOURS IVPB 03/28/20 22:00 04/02/20 21:59 03/30/20 06:36 Quetiapine Fumarate (SEROqueL) 15 mg DAILY ORAL 03/31/20 09:00 05/15/20 08:59 UNV Risperidone (RisperDAL) 1 mg QHS ORAL 03/30/20 21:00 05/14/20 20:59 Sodium Chloride 1,000 ml @ 100 mls/hr Q10H IV 03/28/20 21:45 04/27/20 21:44 03/30/20 13:10 Vancomycin HCl 250 ml @ 166.667 mls/hr Q8H IVPB 03/29/20 20:00 03/30/20 16:00 03/30/20 13:10 Vancomycin HCl 300 ml @ 150 mls/hr Q8H IVPB 03/30/20 20:00 04/04/20 19:59 Vancomycin HCl (Vanco pharmacy to dose) 1 ea DAILY PRN MISC Per rx protocol 03/28/20 21:45 04/27/20 21:44 Assessment/Plan Assessment/Plan: non healing foot ulcer dm uncontrolled dm neuropathy depression cronic pain depression add seraquil and risperadol iv abx wound care bone scan r/o osteo pdietary consult Clement Bensno MD Mar 30, 2020 13:44
[2020-03-30 16:00] VITALS: BP 119/74
--- NOTE | 2020-03-30 16:20 | Infectious Diseases Prog Note ---
Assessment/Plan Assessment/Plan IMPRESSION: Osteomyelitis of right foot, Diabetic foot ulcer, Diabetes mellitus with hyperglycemia, Hypertension, Obesity, Nicotine dependence, Peripheral neuropathy. RECOMMENDATION: Refuses line placement Discontinue vancomycin and Zosyn. Start on PO Linezolid & Levaquin Subjective ROS Limited/Unobtainable: No Constitutional: Reports: no symptoms Respiratory: Reports: no symptoms Psychiatric: Reports: other - refuses IV antibiotics Musculoskeletal: Reports: swelling, other - R arm Allergies: Coded Allergies: MILK (Unverified Allergy, Unknown, 01/25/18) Objective Last 24 Hour Vital Signs Date Time Temp Pulse Resp B/P (MAP) Pulse Ox O2 Delivery O2 Flow Rate FiO2 03/30/20 16:00 97.9 73 16 119/74 (89) 97 03/30/20 12:00 97.7 83 16 107/61 (76) 97 03/30/20 09:00 Room Air 03/30/20 08:00 98.3 89 16 121/74 (90) 97 03/30/20 04:00 97.2 76 22 126/77 (93) 97 03/30/20 00:00 97.6 77 22 107/65 (79) 98 03/29/20 21:00 Room Air 03/29/20 20:00 98.1 83 22 111/76 (88) 96 Height (Feet): 6 Height (Inches): 2.00 Weight (Pounds): 280 General Appearance: no acute distress HEENT: mucous membranes moist Cardiovascular: normal rate Abdomen: soft, non tender Extremities: other - R arm edema Skin: ulcers, other Neurologic/Psychiatric: alert, oriented x 3, responsive Microbiology Date/Time Source Procedure Growth Status 03/28/20 16:25 Nasopharynx SARS-CoV-2 RdRp Gene Assay - Final Complete 03/28/20 12:50 Blood Blood Culture - Preliminary NO GROWTH AFTER 24 HOURS Resulted 03/28/20 12:30 Blood Blood Culture - Preliminary NO GROWTH AFTER 24 HOURS Resulted Laboratory Tests Test 03/29/20 16:32 03/29/20 21:04 03/30/20 06:38 03/30/20 11:10 POC Whole Blood Glucose 345 MG/DL (74-106) H 291 MG/DL (74-106) H 246 MG/DL (74-106) H Vancomycin Level Trough 11.4 ug/mL (5.0-12.0) Test 03/30/20 11:41 POC Whole Blood Glucose 307 MG/DL (74-106) H Current Medications Medications (Trade) Dose Ordered Sig/Yamini Route PRN Reason Start Time Stop Time Status Last Admin Dose Admin Acetaminophen (Tylenol) 650 mg Q4H PRN ORAL Mild Pain (Pain Scale 1-3) 03/28/20 21:45 04/27/20 21:44 Acetaminophen/ Hydrocodone Bitart ([place] 5/325) 1 tab Q6H PRN ORAL Moderate Pain (Pain Scale 4-6) 03/28/20 21:45 04/04/20 21:44 03/28/20 22:50 Clindamycin HCl (Cleocin) 300 mg Q8HR ORAL 03/30/20 22:00 04/06/20 21:59 Dextrose (Dextrose 50%) 25 ml Q30M PRN IV Hypoglycemia 03/28/20 21:45 06/26/20 21:44 Dextrose (Dextrose 50%) 50 ml Q30M PRN IV Hypoglycemia 03/28/20 21:45 06/26/20 21:44 Gabapentin (Neurontin) 600 mg BID ORAL 03/28/20 21:45 04/27/20 21:44 03/30/20 08:40 Heparin Sodium (Porcine) (Heparin 5000 units/ml) 5,000 units EVERY 8 HOURS SUBQ 03/28/20 22:00 05/12/20 21:59 03/30/20 15:20 Insulin Aspart (NovoLOG) BEFORE MEALS AND HS SUBQ 03/29/20 06:30 06/27/20 06:29 03/30/20 12:25 Ondansetron HCl (Zofran) 4 mg Q6H PRN IVP Nausea & Vomiting 03/28/20 21:45 04/27/20 21:44 Piperacillin Sod/ Tazobactam Sod 3.375 gm/Sodium Chloride 110 ml @ 27.5 mls/hr EVERY 8 HOURS IVPB 03/28/20 22:00 04/02/20 21:59 03/30/20 06:36 Quetiapine Fumarate (SEROqueL) 50 mg DAILY ORAL 03/31/20 09:00 05/15/20 08:59 Risperidone (RisperDAL) 1 mg QHS ORAL 03/30/20 21:00 05/14/20 20:59 Sodium Chloride 1,000 ml @ 100 mls/hr Q10H IV 03/28/20 21:45 04/27/20 21:44 03/30/20 13:10 Vancomycin HCl 300 ml @ 150 mls/hr Q8H IVPB 03/30/20 20:00 04/04/20 19:59 Vancomycin HCl (Vanco pharmacy to dose) 1 ea DAILY PRN MISC Per rx protocol 03/28/20 21:45 04/27/20 21:44 Charbel Collier MD Mar 30, 2020 16:20
[2020-03-30] MEDS: Levofloxacin 500mg tab ORAL SCH (17:33)
[2020-03-30 20:00] VITALS: BP 126/77
[2020-03-30] MEDS ORDERED: Vancomycin 1.5gm/300ml Premix IVPB SCH (20:00)
[2020-03-30] MEDS: Clindamycin 150mg cap ORAL SCH (21:25)
[2020-03-31] VITALS: BP 134/75
[2020-03-31] MEDS: Clindamycin 150mg cap ORAL SCH ×3 (06:33→22:35)
[2020-03-31] MEDS: Heparin 5000 units/ml inj SUBQ SCH ×3 (06:34→22:00)
[2020-03-31] MEDS: NovoLOG Insulin Flexpen SUBQ SCH ×4 (06:35→22:42)
[2020-03-31 08:00] VITALS: BP 125/69
[2020-03-31] MEDS: Levofloxacin 500mg tab ORAL SCH (09:21)
--- NOTE | 2020-03-31 09:35 | Podiatric Progress Note ---
Assessment/Plan Patient Cole Berry is a 55 year old male who was admitted on Mar 28, 2020 at 14:43 with Assessment/Plan A/ 1) Extensive osteomyelitis right foot 2) Right foot diabetic foot ulcer 3) Uncontrolled DM 4) DM neuropathy 5) Homeless P/ 1) Patient offered surgery to treat OM of 2nd met that has erosive changes. Patient refused surgery. Advised that he should agree with ID recs of IV abx but refuses. Advised that refusing surgery and appropriate abx increases risk of amputation of foot/leg. This was discussed several times with patient, but he continues to refuse surgery and IV abx. Cont abx per ID 2) Cont wound care 3) Patient can be discharged from my standpoint and can be followed as outpati ent. Subjective Allergies: Coded Allergies: MILK (Unverified Allergy, Unknown, 01/25/18) Subjective Patient sitting in bed. NAD. No new complaints Objective Exam Last 24 Hour Vital Signs Date Time Temp Pulse Resp B/P (MAP) Pulse Ox O2 Delivery O2 Flow Rate FiO2 03/31/20 00:00 97.6 95 16 134/75 (94) 97 03/30/20 21:00 Room Air 03/30/20 20:00 97.2 76 16 126/77 (93) 97 03/30/20 16:00 97.9 73 16 119/74 (89) 97 03/30/20 12:00 97.7 83 16 107/61 (76) 97 Laboratory Tests Test 03/30/20 11:10 03/30/20 11:41 03/30/20 16:51 03/30/20 21:22 Vancomycin Level Trough 11.4 ug/mL (5.0-12.0) POC Whole Blood Glucose 307 MG/DL (74-106) H 176 MG/DL (74-106) H 222 MG/DL (74-106) H Test 03/31/20 06:32 POC Whole Blood Glucose 275 MG/DL (74-106) H Microbiology Date/Time Source Procedure Growth Status 03/28/20 16:25 Nasopharynx SARS-CoV-2 RdRp Gene Assay - Final Complete 03/28/20 12:50 Blood Blood Culture - Preliminary NO GROWTH AFTER 24 HOURS Resulted Musculoskeletal Musculoskeletal Patient : COLE BERRY Referring Physician: Estella Houser D.O ID Number:[id number] Service Date: 03/28/20 : 1965 Report Date: 03/28/20 Gender: M Accession No.: [id number] Location: EMR Procedure: XRAY Foot 2v R Indication: Wound on dorsal portion of fluid Technique: 3 views right foot Comparison: none Findings: Exam is significantly limited by deformities. There is severe hammertoe deformity of the first digit, with nearly 90 degree angulation of the metatarsophalangeal joint. The base of the proximal phalanx appears significantly posteriorly subluxed and may be chronically dislocated. There is unusual gracile and deformed appearance of the second metatarsal, probably due to old trauma and erosive change. There is some chronic appearing erosive change of the second metatarsal head as well. There is severe hammertoe deformity of the second digit. There is less severe hammertoe deformities of the third fourth and fifth digits. No definite acute fracture. No dislocations. No definite osseous erosions. There is some chronic appearing periosteal reaction along the shaft of the fourth metatarsal, but no worrisome acute periosteal reaction demonstrated. Impression: No definite plain radiographic abnormality to suggest acute osteomyelitis. Note, however, limited sensitivity of plain radiographs for such; consider MRI or bone scan if there is high clinical suspicion Deformities as described No acute bony trauma Dictated By: Bernardo Kraft MD Electronically Signed By:Bernardo Kraft MD Signed Date/Time 03/28/20 1438 Patient : COLE BERRY Referring Physician: Nima Phoenix [facility] ID Number:[id number] Service Date: 03/29/20 : 1965 Report Date: 03/29/20 Gender: M Accession No.: [id number] Location: Procedure: MRI Right Foot WO Contrast Indication: Right foot ulcer for 3 years Technique: Sagittal, axial, and coronal T1 FSE and FSE STIR images of the right forefoot Comparison: No comparison MRI. Reference made to foot radiograph dated 03/28/2020 Findings: Abnormal increased STIR and decreased T1 signal is seen in the mid to distal first metatarsal. There is mild edema of the surrounding soft tissues. The first metatarsal phalangeal joint is dislocated, with the first proximal phalanx and a 90 degree angle to the first metatarsal neck leaning cephalad, and the art icular surface of the proximal phalanx resting on the first metatarsal neck. There is also signal abnormality within the medial sesamoid, likely indicating involvement with osteomyelitis. There is more questionable signal abnormality in the plantar sesamoid. The remainder of the first digit demonstrates normal marrow signal. Markedly increased STIR and decreased T1 signal are seen throughout the mid to distal second metatarsal. There is a suggestion of a chronic fracture deformity of the second metatarsal tarsal shaft. There is evidence of advanced destructive changes of the distal aspect of the second metatarsal, which is more striking what is demonstrated on the prior plain radiograph. Abnormal increased STIR and decreased T1 signal is also seen within the second proximal phalanx. There is considerable edema of the surrounding soft tissues. Abnormal increased STIR and decreased T1 signal is seen throughout the third metatarsal shaft and head. There is also mildly increased STIR signal and equivocal decreased T1 signal in the third proximal phalanx. The middle and distal phalanges appear unremarkable. There is considerable edema of the surrounding soft tissues. No definite signal abnormality involving the fourth or fifth digits is demonstrated. There is a well-circumscribed fluid collection involving the tip of the fourth digit which appears very superficial. This measures 10 x 6 mm. A tissue marker ahmadi an ulcer at the plantar surface below the third proximal interphalangeal joint. Abnormal increased STIR and decreased T1 signal are seen in the lateral cuneiform. More questionable smaller signal abnormality is seen within the middle cuneiform and a very small area of signal abnormality is seen at the posterior superior corner of the medial cuneiform. There is equivocal increased STIR signal without definite T1 signal abnormality in the cuboid Other than the abnormality of the tip of the fourth digit, no discrete organized fluid collection to suggest abscess is demonstrated. Impression: Evidence of osteomyelitis involving the second metatarsal and second proximal phalanx. Evidence of extensive destructive change of the distal second metatarsal; appearance on MRI and earlier plain radiograph suggests that this is a combination of chronic and acute destructive change. Evidence of osteomyelitis involving the first metatarsal, the third metatarsal, and the lateral cuneiform. STIR signal abnormality without definite corresponding T1 signal abnormality involving the third proximal phalanx, the cuboid, and the middle and medial cuneiforms. This could represent reactive changes, or could indicate very early osteomyelitis. Superficial fluid collection at the tip of the fourth digit is a 10 x 6 mm, presumably a blister. This should be evident clinically graft no definite organized fluid collection to suggest abscess. Areas of soft tissue edema probably represent inflammation secondary to infection, but could also represent edema of hemodynamic origin. Soft tissue ulcer at the plantar surface below the third metatarsophalangeal joint Findings discussed by phone with Dr. Phoenix at the time of interpretation Dictated By: Bernardo Kraft MD Electronically Signed By:Bernardo Kraft MD Signed Date/Time 03/29/20 3423 Dermatological Dermatological Narrative Wound is unchanged. Minimal serous drainage. Nima Phoenix Crissy Mar 31, 2020 09:35
[2020-03-31 12:00] VITALS: BP 100/56
--- NOTE | 2020-03-31 12:40 | Infectious Diseases Prog Note ---
Assessment/Plan Assessment/Plan IMPRESSION: Osteomyelitis of right foot, Diabetic foot ulcer, Diabetes mellitus with hyperglycemia, Hypertension, Obesity, Nicotine dependence, Peripheral neuropathy. RECOMMENDATION: Refuses line placement & Surgery Continue PO Linezolid & Levaquin Subjective ROS Limited/Unobtainable: No Constitutional: Reports: no symptoms Respiratory: Reports: no symptoms Gastrointestinal/Abdominal: Reports: no symptoms Genitourinary: Reports: no symptoms Musculoskeletal: Reports: pain, other - in feet, R>L Allergies: Coded Allergies: MILK (Unverified Allergy, Unknown, 01/25/18) Objective Last 24 Hour Vital Signs Date Time Temp Pulse Resp B/P (MAP) Pulse Ox O2 Delivery O2 Flow Rate FiO2 03/31/20 09:00 Room Air 03/31/20 08:00 97.3 83 18 125/69 (87) 97 03/31/20 00:00 97.6 95 16 134/75 (94) 97 03/30/20 21:00 Room Air 03/30/20 20:00 97.2 76 16 126/77 (93) 97 03/30/20 16:00 97.9 73 16 119/74 (89) 97 Height (Feet): 6 Height (Inches): 2.00 Weight (Pounds): 280 HEENT: mucous membranes moist Respiratory/Chest: lungs clear Cardiovascular: normal rate Abdomen: soft, non tender Extremities: other - decreasing edema of R arm Neurologic/Psychiatric: alert, oriented x 3, responsive Microbiology Date/Time Source Procedure Growth Status 03/28/20 16:25 Nasopharynx SARS-CoV-2 RdRp Gene Assay - Final Complete 03/28/20 12:50 Blood Blood Culture - Preliminary NO GROWTH AFTER 24 HOURS Resulted Laboratory Tests Test 03/30/20 16:51 03/30/20 21:22 03/31/20 06:32 03/31/20 11:52 POC Whole Blood Glucose 176 MG/DL (74-106) H 222 MG/DL (74-106) H 275 MG/DL (74-106) H Pending Current Medications Medications (Trade) Dose Ordered Sig/Yamini Route PRN Reason Start Time Stop Time Status Last Admin Dose Admin Acetaminophen (Tylenol) 650 mg Q4H PRN ORAL Mild Pain (Pain Scale 1-3) 03/28/20 21:45 04/27/20 21:44 Acetaminophen/ Hydrocodone Bitart ([place] 5/325) 1 tab Q6H PRN ORAL Moderate Pain (Pain Scale 4-6) 03/28/20 21:45 04/04/20 21:44 03/28/20 22:50 Clindamycin HCl (Cleocin) 300 mg Q8HR ORAL 03/30/20 22:00 04/06/20 21:59 03/31/20 06:33 Dextrose (Dextrose 50%) 25 ml Q30M PRN IV Hypoglycemia 03/28/20 21:45 06/26/20 21:44 Dextrose (Dextrose 50%) 50 ml Q30M PRN IV Hypoglycemia 03/28/20 21:45 06/26/20 21:44 Gabapentin (Neurontin) 600 mg BID ORAL 03/28/20 21:45 04/27/20 21:44 03/31/20 09:21 Heparin Sodium (Porcine) (Heparin 5000 units/ml) 5,000 units EVERY 8 HOURS SUBQ 03/28/20 22:00 05/12/20 21:59 03/31/20 06:34 Insulin Aspart (NovoLOG) BEFORE MEALS AND HS SUBQ 03/29/20 06:30 06/27/20 06:29 03/31/20 11:57 Levofloxacin (Levaquin) 500 mg DAILY ORAL 03/30/20 16:30 04/06/20 16:29 03/31/20 09:21 Linezolid (Zyvox) 600 mg EVERY 12 HOURS ORAL 03/30/20 16:30 04/04/20 16:29 03/31/20 09:21 Ondansetron HCl (Zofran) 4 mg Q6H PRN IVP Nausea & Vomiting 03/28/20 21:45 04/27/20 21:44 Quetiapine Fumarate (SEROqueL) 50 mg DAILY ORAL 03/31/20 09:00 05/15/20 08:59 03/31/20 09:20 Risperidone (RisperDAL) 1 mg QHS ORAL 03/30/20 21:00 05/14/20 20:59 03/30/20 21:24 Sodium Chloride 1,000 ml @ 100 mls/hr Q10H IV 03/28/20 21:45 04/27/20 21:44 03/30/20 13:10 Charbel Collier MD Mar 31, 2020 12:40
--- NOTE | 2020-03-31 15:08 | General Progress Note ---
Subjective Allergies: Coded Allergies: MILK (Unverified Allergy, Unknown, 01/25/18) Subjective in bed c/o joseline in foot insomania refusing for bone scan, procedure by podietary and pcc line Objective Last 24 Hour Vital Signs Date Time Temp Pulse Resp B/P (MAP) Pulse Ox O2 Delivery O2 Flow Rate FiO2 03/31/20 12:00 97.6 65 18 100/56 (71) 98 03/31/20 09:00 Room Air 03/31/20 08:00 97.3 83 18 125/69 (87) 97 03/31/20 00:00 97.6 95 16 134/75 (94) 97 03/30/20 21:00 Room Air 03/30/20 20:00 97.2 76 16 126/77 (93) 97 03/30/20 16:00 97.9 73 16 119/74 (89) 97 Intake and Output 03/30/20 03/31/20 19:00 07:00 Intake Total 1200 ml 1500 ml Output Total 2000 ml 2100 ml Balance -800 ml -600 ml Intake Oral 1200 ml 1500 ml Output Urine Total 2000 ml 2100 ml Laboratory Tests 03/30/20 16:51: POC Whole Blood Glucose 176H 03/30/20 21:22: POC Whole Blood Glucose 222H 03/31/20 06:32: POC Whole Blood Glucose 275H 03/31/20 11:52: POC Whole Blood Glucose [Pending] Height (Feet): 6 Height (Inches): 2.00 Weight (Pounds): 280 General Appearance: alert EENT: PERRL/EOMI Neck: supple Cardiovascular: regular rhythm Respiratory/Chest: lungs clear Abdomen: non tender, soft Extremities: inflammation Assessment/Plan Assessment/Plan: non healing foot ulcer dm uncontrolled dm neuropathy depression cronic pain depression poor complience psych consult add seraquil and risperadol abx wound care bone scan r/o osteo pdietary consult Clement Benson MD Mar 31, 2020 15:08
[2020-03-31 16:00] VITALS: BP 117/71
[2020-03-31 20:00] VITALS: BP 104/66
[2020-04-01] VITALS: BP 112/75
[2020-04-01] MEDS: Heparin 5000 units/ml inj SUBQ SCH ×3 (05:03→21:25)
[2020-04-01] MEDS: Clindamycin 150mg cap ORAL SCH ×3 (05:08→21:23)
[2020-04-01] MEDS: NovoLOG Insulin Flexpen SUBQ SCH ×4 (05:11→20:40)
[2020-04-01 08:00] VITALS: BP 101/70
[2020-04-01] MEDS: Levofloxacin 500mg tab ORAL SCH (08:16)
[2020-04-01 10:21] LABS: EOSINOPHILS % (AUTO) 7.2 % (0.0-3.0); HEMATOCRIT 39.2 % (42.0-52.0); LYMPHOCYTES % (AUTO) 25.6 % (20.0-45.0); MEAN CORPUSCULAR VOLUME 79 FL (80-99); MONOCYTES % (AUTO) 9.6 % (1.0-10.0); NEUTROPHILS % (AUTO) 56.7 % (45.0-75.0); PLATELET COUNT 253 K/UL (150-450); RED BLOOD COUNT 4.94 M/UL (4.70-6.10); RED CELL DISTRIBUTION WIDTH 13.7 % (11.6-14.8)
[2020-04-01 10:53] LABS: ANION GAP 7 mmol/L (5-15); BLOOD UREA NITROGEN 14 mg/dL (7-18); CALCIUM 8.2 MG/DL (8.5-10.1); CARBON DIOXIDE 25 MMOL/L (21-32); CHLORIDE 102 MMOL/L (98-107); CREATININE 0.8 MG/DL (0.55-1.30); POTASSIUM 4.1 MMOL/L (3.5-5.1); SODIUM 134 MMOL/L (136-145)
[2020-04-01 12:00] VITALS: BP 117/71
--- NOTE | 2020-04-01 12:27 | General Progress Note ---
Subjective Allergies: Coded Allergies: MILK (Unverified Allergy, Unknown, 01/25/18) Subjective in bed doing ok refusing tx insomania refusing for bone scan, procedure by podietary and pcc line Objective Last 24 Hour Vital Signs Date Time Temp Pulse Resp B/P (MAP) Pulse Ox O2 Delivery O2 Flow Rate FiO2 04/01/20 09:00 Room Air 04/01/20 08:00 97.4 82 18 101/70 (80) 96 04/01/20 00:00 98.2 81 18 112/75 (87) 97 03/31/20 21:00 Room Air 03/31/20 20:00 98.7 79 18 104/66 (79) 97 03/31/20 16:00 97.6 73 18 117/71 (86) 98 Intake and Output 03/31/20 04/01/20 19:00 07:00 Intake Total 1600 ml 2000 ml Output Total 1800 ml 2500 ml Balance -200 ml -500 ml Intake Oral 1600 ml 2000 ml Output Urine Total 1800 ml 2500 ml Laboratory Tests 03/31/20 16:47: POC Whole Blood Glucose [Pending] 04/01/20 04:56: POC Whole Blood Glucose 284H 04/01/20 08:45: White Blood Count 7.0, Red Blood Count 4.94, Hemoglobin 14.0L, Hematocrit 39.2L, Mean Corpuscular Volume 79L, Mean Corpuscular Hemoglobin 28.2, Mean Corpuscular Hemoglobin Concent 35.6, Red Cell Distribution Width 13.7, Platelet Count 253, Mean Platelet Volume 8.7, Neutrophils (%) (Auto) 56.7, Lymphocytes (%) (Auto) 25.6, Monocytes (%) (Auto) 9.6, Eosinophils (%) (Auto) 7.2H, Basophils (%) (Auto) 1.0, Sodium Level 134L, Potassium Level 4.1, Chloride Level 102, Carbon Dioxide Level 25, Anion Gap 7, Blood Urea Nitrogen 14, Creatinine 0.8, Estimat Glomerular Filtration Rate > 60, Glucose Level 316H, Calcium Level 8.2L 04/01/20 11:31: POC Whole Blood Glucose 257H Height (Feet): 6 Height (Inches): 2.00 Weight (Pounds): 280 General Appearance: alert EENT: PERRL/EOMI Neck: non-tender Cardiovascular: normal rate Respiratory/Chest: lungs clear Abdomen: non tender, soft Extremities: non-tender - rt foot ulcer -improving Skin: warm/dry Assessment/Plan Assessment/Plan: non healing foot ulcer dm uncontrolled dm neuropathy depression cronic pain better depression poor complience psych consult add seraquil and risperadol abx wound care bone scan r/o osteo pdietary consult refusing surgery a nd bone scan tn home with [facility] fu in office next week Clement Benson MD Apr 01, 2020 12:27
[2020-04-01] MEDS ORDERED: 1/2 NS 1000ml IV ONE (15:39)
[2020-04-01 16:00] VITALS: BP 125/70
[2020-04-01 20:00] VITALS: BP 120/75
--- NOTE | 2020-04-02 00:41 | Psychiatry Consultation ---
Psychiatry Consultation Psychiatry Consultation Chief Complaint: Abnormal Labs History of Present Illness: history of GERD, hypertension, organic brain syndrome who is confused, disoriented. Has waxing and waning consciousness. Not able to be engaged. Has episodes of agitation. Patient attempts to pull out lines and her oxygen mask. PAST PSYCHIATRIC HISTORY: Dementia. PAST MEDICAL HISTORY: Significant for pneumonia, renal insufficiency. ALLERGIES: No known drug allergies. SUBSTANCE ABUSE HISTORY: No known history of illicit drug use or alcohol. MENTAL STATUS EXAMINATION: Patient is having waxing and waning consciousness. Mood is anxious. Affect is blunted, congruent with mood. Thought process is concrete. Thought content, no suicidal or homicidal ideation. Cognition is impaired. Insight and judgment is impaired. ASSESSMENT: Osteen I Acute metabolic encephalopathy. Dementia. Osteen II Deferred. Osteen III As above. Osteen IV Low. Osteen V 20. PLAN: 1. We will start patient on Haldol p.r.n. 2. Bilateral soft restraints. Allergies: Coded Allergies: MILK (Unverified Allergy, Unknown, 01/25/18) Medication History Scheduled Gabapentin* (Gabapentin*), 100 MG ORAL THREE TIMES A DAY Scheduled PRN Acetaminophen With Codeine (T#3) (Tylenol #3 Tab*), 1 TAB ORAL Q8H PRN for For Pain Diphenhydramine Hcl* (Diphenhydramine Hcl*), 25 MG ORAL QHS PRN for insomnia Miscellaneous Medications Metformin Hcl* (Metformin Hcl*), Unknown Dose ORAL, (Reported) Objective Data Height (Feet): 6 Height (Inches): 2.00 Weight (Pounds): 280 Radha Diamond MD Apr 02, 2020 00:41
[2020-04-02 04:00] VITALS: BP 114/80
[2020-04-02] MEDS: Clindamycin 150mg cap ORAL SCH (06:07)
[2020-04-02] MEDS: Heparin 5000 units/ml inj SUBQ SCH ×2 (06:13→14:02)
[2020-04-02] MEDS: NovoLOG Insulin Flexpen SUBQ SCH ×3 (06:14→16:30)
[2020-04-02 08:00] VITALS: BP 127/80
[2020-04-02] MEDS: Levofloxacin 500mg tab ORAL SCH (08:36)
--- NOTE | 2020-04-02 10:42 | General Progress Note ---
Subjective Allergies: Coded Allergies: MILK (Unverified Allergy, Unknown, 01/25/18) Subjective in bed doing ok refusing tx insomania refusing for bone scan, procedure by podietary and pcc line Objective Last 24 Hour Vital Signs Date Time Temp Pulse Resp B/P (MAP) Pulse Ox O2 Delivery O2 Flow Rate FiO2 04/02/20 08:00 97.4 79 18 127/80 (96) 96 04/02/20 07:46 Room Air 04/02/20 04:00 97.9 74 18 114/80 (91) 97 04/01/20 21:00 Room Air 04/01/20 20:00 98.4 70 18 120/75 (90) 97 04/01/20 16:00 98.0 83 18 125/70 (88) 97 04/01/20 12:00 97.6 73 18 117/71 (86) 98 Intake and Output 04/01/20 04/02/20 19:00 07:00 Intake Total 1800 ml 1400 ml Output Total 2000 ml 1800 ml Balance -200 ml -400 ml Intake Oral 1800 ml 1400 ml Output Urine Total 2000 ml 1800 ml Laboratory Tests 04/01/20 11:31: POC Whole Blood Glucose 257H 04/01/20 16:36: POC Whole Blood Glucose 282H 04/01/20 20:35: POC Whole Blood Glucose 309H 04/02/20 06:09: POC Whole Blood Glucose 268H Height (Feet): 6 Height (Inches): 2.00 Weight (Pounds): 280 General Appearance: alert EENT: PERRL/EOMI Neck: supple Cardiovascular: regular rhythm Respiratory/Chest: lungs clear Abdomen: non tender, soft Extremities: other - rt foot ulcer Assessment/Plan Assessment/Plan: non healing foot ulcer dm uncontrolled dm neuropathy depression cronic pain better depression poor complience psych consult add seraquil and risperadol abx wound care bone scan r/o osteo pdietary consult refusing surgery a nd bone scan dc home with [facility] fu in office next week Clement Benson MD Apr 02, 2020 10:42
--- NOTE | 2020-04-02 11:51 | Infectious Diseases Prog Note ---
Assessment/Plan Assessment/Plan antibiotics : linezolid, levoquin, clindamycin A 1. Osteomyelitis of right foot with group G streptococcus 2. Diabetic foot ulcer, 3. Diabetes mellitus 4. Hypertension, 5. Peripheral neuropathy. P 1. d/c linezolid, levoquin, clindamycin 2. start po keflex 3. will follow up cultures Subjective Constitutional: Denies: fever, chills Respiratory: Denies: shortness of breath, dry cough Gastrointestinal/Abdominal: Denies: nausea, vomiting, diarrhea Musculoskeletal: Reports: pain - in right foot Allergies: Coded Allergies: MILK (Unverified Allergy, Unknown, 01/25/18) Objective Last 24 Hour Vital Signs Date Time Temp Pulse Resp B/P (MAP) Pulse Ox O2 Delivery O2 Flow Rate FiO2 04/02/20 08:00 97.4 79 18 127/80 (96) 96 04/02/20 07:46 Room Air 04/02/20 04:00 97.9 74 18 114/80 (91) 97 04/01/20 21:00 Room Air 04/01/20 20:00 98.4 70 18 120/75 (90) 97 04/01/20 16:00 98.0 83 18 125/70 (88) 97 04/01/20 12:00 97.6 73 18 117/71 (86) 98 Height (Feet): 6 Height (Inches): 2.00 Weight (Pounds): 280 Respiratory/Chest: lungs clear Cardiovascular: normal rate, regular rhythm, no gallop/murmur Abdomen: soft, non tender Extremities: no edema, other - right foot in dressings Microbiology Date/Time Source Procedure Growth Status 03/30/20 16:50 Foot Right Gram Stain - Final Complete 03/30/20 16:50 Wound Culture - Final Streptococcus Group G Complete Laboratory Tests Test 04/01/20 16:36 04/01/20 20:35 04/02/20 06:09 POC Whole Blood Glucose 282 MG/DL (74-106) H 309 MG/DL (74-106) H 268 MG/DL (74-106) H Current Medications Medications (Trade) Dose Ordered Sig/Yamini Route PRN Reason Start Time Stop Time Status Last Admin Dose Admin Acetaminophen (Tylenol) 650 mg Q4H PRN ORAL Mild Pain (Pain Scale 1-3) 03/28/20 21:45 04/27/20 21:44 Acetaminophen/ Hydrocodone Bitart ([place] 5/325) 1 tab Q6H PRN ORAL Moderate Pain (Pain Scale 4-6) 03/28/20 21:45 04/04/20 21:44 03/28/20 22:50 Clindamycin HCl (Cleocin) 300 mg Q8HR ORAL 03/30/20 22:00 04/06/20 21:59 04/02/20 06:07 Dextrose (Dextrose 50%) 25 ml Q30M PRN IV Hypoglycemia 03/28/20 21:45 06/26/20 21:44 Dextrose (Dextrose 50%) 50 ml Q30M PRN IV Hypoglycemia 03/28/20 21:45 06/26/20 21:44 Gabapentin (Neurontin) 600 mg BID ORAL 03/28/20 21:45 04/27/20 21:44 04/02/20 08:36 Heparin Sodium (Porcine) (Heparin 5000 units/ml) 5,000 units EVERY 8 HOURS SUBQ 03/28/20 22:00 05/12/20 21:59 04/02/20 06:13 Insulin Aspart (NovoLOG) BEFORE MEALS AND HS SUBQ 03/29/20 06:30 06/27/20 06:29 04/02/20 06:14 Levofloxacin (Levaquin) 500 mg DAILY ORAL 03/30/20 16:30 04/06/20 16:29 04/02/20 08:36 Linezolid (Zyvox) 600 mg EVERY 12 HOURS ORAL 03/30/20 16:30 04/04/20 16:29 04/02/20 08:36 Ondansetron HCl (Zofran) 4 mg Q6H PRN IVP Nausea & Vomiting 03/28/20 21:45 04/27/20 21:44 Quetiapine Fumarate (SEROqueL) 50 mg DAILY ORAL 03/31/20 09:00 05/15/20 08:59 04/02/20 10:34 Risperidone (RisperDAL) 1 mg QHS ORAL 03/30/20 21:00 05/14/20 20:59 04/01/20 20:40 Sodium Chloride 1,000 ml @ 100 mls/hr Q10H IV 03/28/20 21:45 04/27/20 21:44 03/30/20 13:10 Quentin Naranjo MD Apr 02, 2020 11:51
[2020-04-02 12:00] VITALS: BP 130/70
[2020-04-02] MEDS ORDERED: Cephalexin 500mg cap ORAL SCH (13:00)
[2020-04-02 16:00] VITALS: BP 125/79
--- NOTE | 2020-04-02 22:53 | Psychiatric Progress Note ---
Psychiatry Progress Note Psychiatry Progress Note Neurological/Psychiatric: Reports: anxiety, depressed, emotional problems Allergies: Coded Allergies: MILK (Unverified Allergy, Unknown, 01/25/18) Objective Data Height (Feet): 6 Height (Inches): 2.00 Weight (Pounds): 280 General Appearance: alert, alert oriented x3 Appearance: well groomed Behavior Mannerisms: good eye contact Mental Status Exam - Affect: blunted Mental Status Exam - Mood: depressed, anxious Mental Status Exam - Thought P: goal-directed Mental Status Exam - Suicidal: not present Assessment/Plan Problem List: (1) Polysubstance abuse (2) MDD (major depressive disorder) Assessment/Plan: cont current meds provided ro/Radha Osuna MD Apr 02, 2020 22:53
--- NOTE | 2020-04-05 16:50 | Discharge Summary ---
Discharge Summary Discharge Summary _ Date of admission: 03/28/2020 Date of discharge: 04/02/[address] Benson History of Present Illness and Brief Hospital Course Mr. Berry is a 55-year-old male with past medical history of [id number] diabetes, hypertension, obesity, and polysubstance abuse, who presented to the ER by ambulance with a chief complaint of right plantar foot pain and generalized weakness. He reported his symptoms to be gradual in onset over several weeks, and moderate in severity. His blood sugar was critically elevated in the 400s on arrival. Patient also reported some palpitation but denied any chest pain. His right plantar foot had large open purulent diabetic foot ulceration with surrounding cellulitis. Patient was bolused with IV fluids due to critically elevated blood sugar. X-ray of his foot was negative for subcutaneous gas and there was high suspicion for osteomyelitis. Initial laboratory studies showed elevated lactate of 3. Also he had hyperglycemia without evidence of DKA or HHS. Patient received cefepime, Tdap, vancomycin, insulin and IV fluids in the ER. His chest x-ray was negative for infiltrate but did show mild cardiomegaly. For his nonhealing foot ulcer he was started on wound care. However, patient showed poor compliance and refused bone scan, IV antibiotics, and surgery. Podiatry specialist recommended him surgery to treat osteomyelitis of second metatarsal that had erosive changes. However patient refused surgery. Patient was advised that he should agree with IV antibiotics but he persistently refused. He was counseled on risks of refusing surgery and appropriate antibiotics. This was discussed several times with patient, but he continued to refuse surgery and IV antibiotics. His antibiotics were initially transitioned to linezolid, Levaquin, and clindamycin. Per results of culture, aforementioned antibiotics were discontinued and were transitioned to p.o. Keflex for discharge. Due to patient's underlying psych disorder patient was given quetiapine, and risperidone. However, due to continued refusal to care, it was deemed appropriate to discharged him home with [facility] and was instructed to follow-up in office next week. Consultants: Infectious disease Dr. Collier Podiatry Dr. [place] Discharge Condition Stable vitals however no significant improvement of his right foot pain due to his noncompliance and refusal to care Discharge Activity As tolerated Final diagnoses Peripheral neuropathy Hypertension Obesity Diabetic foot ulcer Uncontrolled diabetes mellitus Polysubstance abuse Noncompliance Osteomyelitis of right foot with group G Streptococcus Depression I have been assigned to dictate discharge summary for this account. I was not involved in the patient's management Colby Oconnor Apr 05, 2020 16:50
== END 2020-04-02 17:25 | DRG 637 ==
LOC: EDBD 12:28 → EMR 12:50 → 4E 14:43 → EDBEDREQ 18:31 → 3E 03-29 17:06
DX: E11.621 Type 2 diabetes mellitus with foot ulcer (principal); G93.41 Metabolic encephalopathy; E11.52 Type 2 diabetes mellitus with diabetic peripheral angiopathy with gangrene; I96 Gangrene, not elsewhere classified; M86.8X7 Other osteomyelitis, ankle and foot; E11.65 Type 2 diabetes mellitus with hyperglycemia; E66.9 Obesity, unspecified; Z68.35 Body mass index [BMI] 35.0-35.9, adult; E11.42 Type 2 diabetes mellitus with diabetic polyneuropathy; Z79.84 Long term (current) use of oral hypoglycemic drugs; Z59.0 Homelessness; F17.200 Nicotine dependence, unspecified, uncomplicated; B95.4 Other streptococcus as the cause of diseases classified elsewhere; Z91.19 Patient's noncompliance with other medical treatment and regimen; Z53.29 Procedure and treatment not carried out because of patient's decision for other reasons; F19.10 Other psychoactive substance abuse, uncomplicated; F03.90 Unspecified dementia, unspecified severity, without behavioral disturbance, psychotic disturbance, mood disturbance, and anxiety; F32.9 Major depressive disorder, single episode, unspecified
CPT/HCPCS: 36415; 71045; 80048; 80053; 80202; 80307; 81003; 82010; 82550; 82803; 82962; 83036; 83605; 83690; 84484; 85025; 85610; 85651; 85730; 86140; 87040; 87070; 87205; 90471; 90715; 93005; 96365; 96367; 96372; 96375; 99285; J1815; J7030; U0002